=== PATIENT | male | born 1990 | race African-American/Black ===

== ENCOUNTER 2025-07-22 03:57 | Emergency (ER) | payer MEDICAID ==
[~2025-07-22] VITALS: Ht 165.1 cm; Wt 85.0 kg
[2025-07-22] MEDS: ACETAMINOPHEN 500 MG TABLET PO ONE (04:29)
[2025-07-22] MEDS: PROPARACAINE HCL 0.5% 15 ML OPHTHALMIC SOLUTION OS ONE (04:29)
[2025-07-22 04:36] VITALS: BP 134/80; PULSE 114; RESP 20; O2SAT 99
== END 2025-07-22 05:40 ==
LOC: EMS 03:58
DX: S05.12XA Contusion of eyeball and orbital tissues, left eye, initial encounter (principal); F12.90 Cannabis use, unspecified, uncomplicated; V49.9XXA Car occupant (driver) (passenger) injured in unspecified traffic accident, initial encounter; Y93.89 Activity, other specified; Y92.410 Unspecified street and highway as the place of occurrence of the external cause; Y99.8 Other external cause status
CPT/HCPCS: 99283